=== PATIENT | male | born 1960 | race Caucasian/White ===

== ENCOUNTER 2024-08-28 10:43 | Emergency (ER) | payer MEDICARE ==
[~2024-08-28] VITALS: Ht 172.7 cm; Wt 59.9 kg
[2024-08-28 10:55] VITALS: PULSE 84; RESP 16; TEMP 98.3; O2SAT 100
[2024-08-28] MEDS ORDERED: TYLENOL325 MG PO (11:11)
[2024-08-28] MEDS ORDERED: CEFDINIR300 MG PO (11:11)
[2024-08-28] MEDS ORDERED: DEBROX15 ML RIGHT EAR (11:11)
== END 2024-08-28 11:21 | disposition home or self-care (01) ==
LOC: FSED 10:48
DX: H66.91 Otitis media, unspecified, right ear (principal); H92.11 Otorrhea, right ear; E11.9 Type 2 diabetes mellitus without complications; Z95.810 Presence of automatic (implantable) cardiac defibrillator; F17.210 Nicotine dependence, cigarettes, uncomplicated
CPT/HCPCS: 99284